=== PATIENT | female | born 1975 | race Asian ===

== ENCOUNTER 2020-08-14 14:52 | Outpatient (CLI) | payer OTHER | END 2020-08-14 15:09 | disposition home or self-care (01) | LOC: MAMO-SONO 14:52 | PROVIDERS: ATTEND Obstetrics & Gynecology | DX: Z12.31 Encounter for screening mammogram for malignant neoplasm of breast (principal); N60.11 Diffuse cystic mastopathy of right breast; N60.12 Diffuse cystic mastopathy of left breast ==

== ENCOUNTER 2023-04-26 15:18 | Outpatient (CLI) | payer OTHER | END 2023-04-26 15:30 | disposition home or self-care (01) | LOC: MAMO-SONO 15:18 | PROVIDERS: ATTEND Obstetrics & Gynecology | DX: N60.11 Diffuse cystic mastopathy of right breast (principal); N60.12 Diffuse cystic mastopathy of left breast ==

== ENCOUNTER 2024-08-02 16:40 | Outpatient (CLI) | payer OTHER | END 2024-08-02 17:00 | disposition home or self-care (01) | LOC: MAMO-SONO 16:40 | PROVIDERS: ATTEND Obstetrics & Gynecology | DX: E04.1 Nontoxic single thyroid nodule (principal); N60.11 Diffuse cystic mastopathy of right breast; N60.12 Diffuse cystic mastopathy of left breast; Z12.31 Encounter for screening mammogram for malignant neoplasm of breast ==